=== PATIENT | male | born 1980 | race Caucasian/White ===

== ENCOUNTER 2016-12-19 14:36 | Emergency (ER) | payer OTHER, BC ==
[2016-12-19 14:52] VITALS: BP 135/87; O2SAT 100
[2016-12-19 14:53] VITALS: PULSE 101; RESP 18; TEMP 98
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
--- NOTE | 2016-12-19 15:36 | RAD ---
PROCEDURE: Cervical Spine Radiographs. HISTORY: Pain. COMPARISON: None. FINDINGS: BONES: Alignment maintained. No fracture. Dens Intact. DISC SPACES: Normal. SOFT TISSUES: Normal. No prevertebral soft tissue swelling. OTHER FINDINGS: None. IMPRESSION: Normal cervical spine radiographs
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
== END 2016-12-19 15:30 | disposition home or self-care (01) ==
LOC: H.ER 14:36
DX: S13.4XXA Sprain of ligaments of cervical spine, initial encounter (principal); S23.3XXA Sprain of ligaments of thoracic spine, initial encounter; V43.62XA Car passenger injured in collision with other type car in traffic accident, initial encounter; Y92.410 Unspecified street and highway as the place of occurrence of the external cause